=== PATIENT | female | born 1965 ===

== ENCOUNTER 2025-01-16 05:51 | Day surgery (SDC) | payer OTHER ==
[~2025-01-16] VITALS: Ht 165.1 cm; Wt 72.7 kg
[~2025-01-16 05:51] MED LIST: CYMBALTA30 MG PO; LACTATED RINGER'S 1,000 ML IV SCH; OMEPRAZOLE20 MG PO; PROBIOTIC1 EAC8 PO; TOPIRAMATE ER25 MG PO
[2025-01-16 06:13] VITALS: BP 117/63
[2025-01-16] MEDS ORDERED: OXYMETAZOLINE HCL 30 ML BTL NAS SCH (06:30)
[2025-01-16] MEDS ORDERED: LIDOCAINE 1% W/ EPI 1:100,000 20 ML MDV ONE (06:42)
[2025-01-16 06:47] LABS: BASOPHILS 0.5 % (0-2); EOSINOPHILS 4.8 % (0-6); HEMATOCRIT 38.4 % (35.0-50.0); HEMOGLOBIN 12.9 g/dL (12.0-18.0); LYMPHOCYTES 32.3 % (24-44); MCHC 33.6 g/dl (30-36); MCV 89.3 fl (81-99); MONOCYTES 8.5 % (0-12); NEUTROPHILS 53.9 % (39-80); PLATELET COUNT 337 K/uL (140-440)
[2025-01-16] MEDS ORDERED: IBLOOD GLUCOSE TEST STRIP 1 EA TEST VI PRN ×2 (07:00→08:00)
[2025-01-16] MEDS ORDERED: CEFAZOLIN SODIUM 2 GM/20 ML SYR IV SCH (07:00)
[2025-01-16] MEDS ORDERED: LIDOCAINE HCL 1% 5 ML SDV INJ ONE (07:00)
[2025-01-16 07:02] LABS: ALBUMIN 3.9 g/dL (3.4-5.0); ALBUMIN/GLOBULIN RATIO 1.34 (1.1-2.4); ANION GAP 12.1 (7-21); BILIRUBIN, TOTAL 0.4 mg/dL (0.2-1.0); BUN/CREATININE RATIO 15.15 (6.0-28.6); CALCIUM 9.1 mg/dL (8.5-10.1); CREATININE, SERUM 0.99 mg/dL (0.55-1.02); POTASSIUM 4.1 mmol/L (3.5-5.1); PROTEIN, TOTAL 6.8 g/dL (6.4-8.2)
[2025-01-16] MEDS ORDERED: propofoL 200 MG/20 ML VIAL ONE (07:20)
[2025-01-16] MEDS ORDERED: fentaNYL citrate 100 MCG/2 ML VIAL ONE (07:20)
[2025-01-16] MEDS ORDERED: ACETAMINOPHEN 1,000 MG/100 ML VIAL ONE (07:20)
[2025-01-16] MEDS ORDERED: DEXAMETHASONE SOD PHOS 4 MG/ML VIAL ONE (07:20)
[2025-01-16] MEDS ORDERED: ondansetron HCL 4 MG/2 ML VIAL ONE (07:20)
[2025-01-16] MEDS ORDERED: MIDAZOLAM HCL 2 MG/2 ML VIAL ONE (07:20)
[2025-01-16] MEDS ORDERED: LIDOCAINE HCL 2% 5 ML SDV ONE (07:20)
[2025-01-16] MEDS ORDERED: droPERidol 5 MG/2 ML VIAL IV PRN (08:00)
[2025-01-16] MEDS ORDERED: NALOXONE HCL 0.4 MG SYR IV PRN (08:00)
[2025-01-16] MEDS ORDERED: ondansetron HCL 4 MG/2 ML VIAL IV PRN (08:00)
[2025-01-16] MEDS ORDERED: PROCHLORPERAZINE EDISYLATE 10 MG/2 ML VIAL IV PRN (08:00)
[2025-01-16] MEDS ORDERED: HYDROmorphone HCL 1 MG/ML SYR IV PRN (08:00)
[2025-01-16] MEDS ORDERED: fentaNYL citrate 50 MCG/ML SDV IV PRN (08:00)
--- NOTE | 2025-01-16 08:16 | NUR ---
01/16/25 0816 Orly,Pao 0805 PT ARRIVED TO PACU ON 6L VIA MASK, RESP EVEN AND UNLABORED. 0810 PT WOKE TO TACTILE STIMULI AND O2 MASK REMOVED. PT DENIES CONCERNS AND PT REST IN BED WITH EYES CLOSED.
[2025-01-16] MEDS ORDERED: SEVOFLURANE 250 ML BTL INH ONE (08:34)
[2025-01-16 08:39] VITALS: BP 112/75
[2025-01-16] MEDS ORDERED: HYDROCODONE/ACETA 5/325 TAB PO PRN (09:00)
--- NOTE | 2025-01-16 09:04 | NUR ---
0840 PT ARRIVED TO DAY SURGERY VIA STREACHER FROM PACU. PT SITTING UPRIGHT AND AWAKE. BREATHING EQUAL AND UNLABORED. DRIP PAD IN PLACE. PT REPORTS 6/10 PAIN. PT HAS BEEN ABLE TO TOLERATE PO FLUIDS. PT REPORTS NO NAUSEA. PT FAMILY AT BEDSIDE. PT HAS CALL LIGHT WITHIN REACH, PT HAS PUDDING AT BEDSIDE. PLAN MADE FOR PAIN CONTROL, PT WILL EAT PUDDING AND THEN PAIN PILL WILL BE GIVEN IF NO NAUSEA.
--- NOTE | 2025-01-16 09:06 | NUR ---
0857 PT HAS BEEN ABLE TO PO PUDDING. PAIN MEDICATION GIVEN PER EMAR.
[2025-01-16 09:30] VITALS: BP 112/64
--- NOTE | 2025-01-16 09:56 | NUR ---
0935 HOURLY ROUNDING DONE WITH PT. PT REPORTS NO PAIN AT THIS TIME. PT REPORTS NO NAUSEA AT THIS TIME. PT REPORTS NEEDING TO URINATE. PT ABLE TO AMBULATE TO BATHROOM AND VOID 100 MLS OF CLEAR YELLOW URINE. PT ABLE TO AMBULATE BACK TO ROOM WITH STEADY GAIT. 0940 IV REMOVED FOR DISCHARGE, AND DISCHARGE INFORMATION GONE OVER WITH PT AND BOYFRIEND. NO QUESTIONS AT THIS TIME. PT GETTING DRESSED WITH BOYFRIEND'S ASSISTANCE. 0950 PT DISCHARGED FROM DAY SURGERY VIA WHEELCHAIR TO THE FRONT OF THE HOSPITAL TO PT'S videoNEXT'S CAR. PT HAS DISCHARGE PAPERWORK AND REPLACEMENT DRIP PAD MATERIALS IN HAND.
--- NOTE | 2025-01-16 12:12 | OR ---
[facility] [address] [place], [place] [address] Signed DATE OF OPERATION: 01/16/2025 SURGEON: Mazin oGel MD PREOPERATIVE DIAGNOSES: Chronic left maxillary sinusitis. POSTOPERATIVE DIAGNOSES: Chronic left maxillary sinusitis. PROCEDURE: Left maxillary sinusotomy. ANESTHESIA: General, LMA; [employer]EC[employer]IVE, Aristides. PREOPERATIVE HISTORY: Paula is a 59-year-old lady with chronic left maxillary sinusitis. This has been present for many years. She underwent a maxillary sinusotomy left-sided by myself about four or five years ago and was doing well after benign pathology with wide open nasal antral window for a year postop. Subsequently, over the last year or two, she has developed left facial pain, sinus congestion. CAT scan positive for recurrent opacification of the left maxillary sinus with extensive sclerosis of the sinus wall. She is taken to the operating room after failure of appropriate medication to alleviate her condition. OPERATIVE PROCEDURE AND FINDINGS: After informed consent, the patient was taken to the operating room, placed in the supine position where general LMA anesthesia was induced. The patient and procedure were verified. Preop CT was viewed throughout. The patient received preoperative intranasal oxymetazoline and intravenous Ancef. Headlight speculum exam of the nasal cavity showed clear nasal passage on the right, the left side essentially unremarkable. The middle meatus was approached curving curette passed in the middle meatus into the maxillary sinus and blackish inspissated secretions removed. The nasal antral window was widened with the Terrance. The sinus was cleaned out completely with suctioning curettes and curved Terrance. There was some granular tissue, but mostly the sinus was filled with inspissated secretions, blackish fungal debris. All material removed, was sent to pathology. The sinus was lavaged. Minimal bleeding throughout. No packing was placed. The patient was awakened. Pharynx suctioned clear of blood and secretions, extubated, transported to the recovery room in good condition. No complications. Electronically Signed By: MAZIN GOEL MD 01/16/25 1212 PATIENT NAME: PAULA MATOS OPERATIVE REPORT DATE OF : 65 REPORT #: [id number] PHYSICIAN: MAZIN GOEL MD PCP: VINI LIMON DO REPORT IS CONFIDENTIAL AND NOT TO BE RELEASED WITHOUT AUTHORIZATION [address] [address] Signed BLOOD LOSS: Minimal. SPECIMEN: Left maxillary sinus contents to pathology. . DRAINS: No drains. PACKING: No packing. COMPLICATIONS: No complications. Mazin Goel MD GC/JANESL /[id number] Copies: ~ Electronically Signed By: MAZIN GOEL MD 01/16/25 1212 PATIENT NAME: PAULA MATOS OPERATIVE REPORT DATE OF : 65 REPORT #: [id number] PHYSICIAN: MAZIN GOEL MD PCP: VINI LIMON DO REPORT IS CONFIDENTIAL AND NOT TO BE RELEASED WITHOUT AUTHORIZATION
--- NOTE | 2025-01-19 12:10 | PATH ---
[facility] [address] [place], [place] [address] Signed SPECIMEN(S): A LEFT MAXILLARY SINUS CONTENTS SPECIMEN SOURCE: A. LEFT MAXILLARY SINUS CONTENTS CLINICAL HISTORY: Opacification of left maxillary sinus FINAL PATHOLOGIC DIAGNOSIS: Left maxillary sinus contents: - Benign respiratory mucosa with focally increased stromal chronic inflammation and plasma cells. - Abundant fungal organisms (fungus ball). - A PAS with diastase stain is positive for fungal organisms. JVR:[facility] MICROSCOPIC EXAMINATION: Histologic sections of all submitted blocks are examined by light microscopy. These findings, together with the gross examination, support the pathologic diagnosis. A PAS with diastase stain is performed with appropriate controls on block A1 and highlights the fungal organisms. JVR:[facility] GROSS DESCRIPTION: The specimen, labeled and designated "Roberto, left maxillary sinus contents," is received in formalin and consists of multiple fragments of red-brown to shaw soft and cartilaginous tissue (2.2 x 1.2 x 0.3 cm in aggregate). The specimen is submitted entirely in cassette (A1) following decalcification in decal stat. VB (under the direct supervision of a pathologist) The Gross Description was prepared using a voice recognition system. The report was reviewed for accuracy; however, sound-alike word errors, addition and/or deletions may occur. If there is any question about this report, please contact Client Services. PERFORMING LABORATORY: The technical component was performed by [facility], [address] [place] [id number] (CLIA# [id number]). Professional interpretation was performed by [facility], [address] [place] [id number] (CLIA#: [id number]). PATIENT NAME: ROGER MATOS PATHOLOGY DATE OF : 65 REPORT #: [id number] PHYSICIAN: [facility] PCP: VINI LIMON DO REPORT IS CONFIDENTIAL AND NOT TO BE RELEASED WITHOUT AUTHORIZATION [address] [place], [place] [address] Signed Diagnostician: Stephen Meléndez MD Pathologist Electronically Signed 01/19/2025 Copies: ~ PATIENT NAME: ROGER MATOS PATHOLOGY DATE OF : 65 REPORT #: [id number] PHYSICIAN: [facility] PCP: VINI LIMON DO REPORT IS CONFIDENTIAL AND NOT TO BE RELEASED WITHOUT AUTHORIZATION
== END 2025-01-16 09:51 | disposition home or self-care (01) ==
LOC: DS 05:51 → OPS 05:51 → DS 07:30 → OPS 09:51
PROVIDERS: Nurse Anesthetist, Certified Registered; ATTEND Otolaryngology
PROC: 09JY8ZZ Inspection of Sinus, Via Natural or Artificial Opening Endoscopic (ICD-10-PCS; principal; 2025-01-16 07:30)
DX: J32.0 Chronic maxillary sinusitis (principal); B48.8 Other specified mycoses; K21.9 Gastro-esophageal reflux disease without esophagitis; Z88.5 Allergy status to narcotic agent; Z79.899 Other long term (current) drug therapy; Z90.49 Acquired absence of other specified parts of digestive tract; Z90.710 Acquired absence of both cervix and uterus
CPT/HCPCS: 00160; 36415; 80053; 85025; 88305; 88311; 88312; J0131; J0690; J1100; J2003; J2250; J2405; J2704; J3010; J7121